=== PATIENT | male | born 1965 | race Caucasian/White ===

== ENCOUNTER 2017-07-10 07:41 | Outpatient (CLI) | payer OTHER | END 2017-07-10 07:45 | disposition home or self-care (01) | LOC: NUCLEAR 07:41 | DX: I20.0 Unstable angina (principal); E78.2 Mixed hyperlipidemia; I11.9 Hypertensive heart disease without heart failure | CPT/HCPCS: 78452; 93017; A9500 ==

== ENCOUNTER 2018-03-04 00:16 | Emergency (ER) | payer OTHER ==
[~2018-03-04] VITALS: Ht 182.9 cm; Wt 154.2 kg
== END 2018-03-04 03:45 | disposition home or self-care (01) ==
LOC: ER 00:16
DX: S00.83XA Contusion of other part of head, initial encounter (principal); W18.09XA Striking against other object with subsequent fall, initial encounter; Y93.89 Activity, other specified; Y92.89 Other specified places as the place of occurrence of the external cause; Y99.8 Other external cause status

== ENCOUNTER 2019-10-03 08:03 | Outpatient (CLI) | payer OTHER | END 2019-10-03 09:16 | disposition home or self-care (01) | LOC: NUCLEAR 08:03 | DX: I10 Essential (primary) hypertension (principal); I51.3 Intracardiac thrombosis, not elsewhere classified; E66.8 Other obesity; E11.9 Type 2 diabetes mellitus without complications; I73.9 Peripheral vascular disease, unspecified ==

== ENCOUNTER 2023-04-25 22:27 | Inpatient (IN) | payer OTHER ==
[~2023-04-25] VITALS: Ht 182.9 cm; Wt 1451.5 kg
[2023-04-25] MEDS ORDERED: BENICAR5 MG PO (22:46)
[2023-04-25] MEDS ORDERED: ECOTRIN325 M1 PO (22:46)
[2023-04-25] MEDS ORDERED: NORVASC5 MG PO (22:46)
[2023-04-25] MEDS ORDERED: GLUMETZA500 MG PO (22:46)
[2023-04-25] MEDS ORDERED: ATORVASTATIN CA40 MG PO (22:47)
[2023-04-25] MEDS ORDERED: LANTUS SOL100 UNIT/1 SQ (22:47)
[2023-04-25 23:56] LABS: HEMOGLOBIN 14.1 g/dL (13-16.00); MEAN CELL VOLUME 89.9 fL (80.0-100.00); MEAN CORPUSCULAR HEMOGLOBIN 30.3 pg (27.00-32.0); MEAN CORPUSCULAR HGB CONC 33.7 g/dl (32.0-36.0); PLATELET COUNT 258 K/uL (150-450); RED BLOOD COUNT 4.68 M/uL (4.00-6.00); RED CELL DISTRIBUTION WIDTH 14.3 % (11.5-14.5)
[2023-04-26 00:15] LABS: INR 1.01; PROTHROMBIN TIME 10.6 SECONDS (9.0-11.5)
[2023-04-26 00:38] LABS: ABG PH 7.437 (7.35-7.45); ABG PO2 80.9 mmHg (80-100); BASE EXCESS 0 mmol/l; BICARBONATE 23.7 mmol/l (23-25); SaO2 96.3 %; Tco2 24.8 mmol/l
[2023-04-26 00:39] LABS: allen test SATISFACTORY; o2 21 %; puncture site RADIAL RIGHT
[2023-04-26 00:39] LABS: ALBUMIN 3.3 gm/dL (3.4-5.0); BILIRUBIN TOTAL 0.35 mg/dL (0.3-1.2); CREATININE SERUM 1.64 mg/dL (0.70-1.30); GFR 43.36; GLOBULINA 3.4 G/DL (2.4-3.5); POTASSIUM 3.53 mEq/L (3.5-5.1); TOTAL PROTEIN 6.7 gm/dL (6.4-8.2)
[2023-04-26 00:48] LABS: PH,URINE 5.5 (5.0-8.0); URINE APPEARANCE Clear; URINE BILIRRUBIN Negative (NEGATIVE); URINE BLOOD Negative; URINE COLOR Yellow; URINE LEUKOCYTE Negative; URINE NITRATE Negative; URINE PROTEIN Negative (NEGATIVE); URINE UROBILINOGEN 0.2 E.U./dl
[2023-04-26 00:52] LABS: URINE BACTERIA 6.2 uL (0.0-1933); URINE EPITHELIAL CELLS 1.5 uL (0.0-38.8)
[2023-04-26 00:54] LABS: URINE GLUCOSE >=1000 MG/DL (NEGATIVE); URINE RBC 1.2 uL (0.0-20.8)
== END 2023-04-28 11:09 | disposition home or self-care (01) | DRG 309 ==
LOC: ER 22:27 → ICU-2 04-26 20:50 → ICU 04-26 20:50 → MEDI 04-27 19:32
PROVIDERS: General Practice; ADMIT Internal Medicine; ATTEND Internal Medicine
PROC: 4A12X4Z Monitoring of Cardiac Electrical Activity, External Approach (ICD-10-PCS; principal; 2023-04-27)
PROC: B24BZZZ Ultrasonography of Heart with Aorta (ICD-10-PCS; 2023-04-27)
DX: I48.20 Chronic atrial fibrillation, unspecified (principal); N17.9 Acute kidney failure, unspecified; G47.33 Obstructive sleep apnea (adult) (pediatric); Z79.4 Long term (current) use of insulin; Z20.822 Contact with and (suspected) exposure to COVID-19; E66.01 Morbid (severe) obesity due to excess calories; I13.10 Hypertensive heart and chronic kidney disease without heart failure, with stage 1 through stage 4 chronic kidney disease, or unspecified chronic kidney disease; E11.22 Type 2 diabetes mellitus with diabetic chronic kidney disease; N18.9 Chronic kidney disease, unspecified

== ENCOUNTER 2023-05-14 07:58 | Emergency (ER) | payer OTHER ==
[~2023-05-14] VITALS: Ht 182.9 cm; Wt 144.2 kg
[~2023-05-14 07:58] MED LIST: ATORVASTATIN CA40 MG PO; BENICAR5 MG PO; ECOTRIN325 M1 PO; GLUMETZA500 MG PO; LANTUS SOL100 UNIT/1 SQ; NORVASC5 MG PO
[2023-05-14] MEDS ORDERED: TOPROL XL100 M1 PO ×2 (08:16→08:50)
[2023-05-14] MEDS ORDERED: METFORMIN HCL850 M1 PO (08:16)
[2023-05-14] MEDS ORDERED: ELIQUIS5 MG PO (08:17)
== END 2023-05-14 09:19 | disposition home or self-care (01) ==
LOC: ER 07:59
DX: F41.9 Anxiety disorder, unspecified (principal); I10 Essential (primary) hypertension; E11.9 Type 2 diabetes mellitus without complications; Z79.4 Long term (current) use of insulin; Z79.84 Long term (current) use of oral hypoglycemic drugs; G47.30 Sleep apnea, unspecified; I49.9 Cardiac arrhythmia, unspecified

== ENCOUNTER 2024-02-03 11:18 | Emergency (ER) | payer OTHER ==
[~2024-02-03] VITALS: Ht 182.9 cm; Wt 151.0 kg
[~2024-02-03 11:18] MED LIST changes: +ELIQUIS5 MG PO; +METFORMIN HCL850 M1 PO; +TOPROL XL100 M1 PO
[2024-02-03 12:42] LABS: HEMATOCRIT 46.8 % (39.0-48.0); HEMOGLOBIN 15.3 g/dL (13-16.00); MEAN CELL VOLUME 90.4 fL (80.0-100.00); MEAN CORPUSCULAR HEMOGLOBIN 29.5 pg (27.00-32.0); MEAN CORPUSCULAR HGB CONC 32.7 g/dl (32.0-36.0); PLATELET COUNT 248 K/uL (150-450); RED BLOOD COUNT 5.17 M/uL (4.00-6.00); RED CELL DISTRIBUTION WIDTH 14.3 % (11.5-14.5)
[2024-02-03 13:04] LABS: INR 1.11
[2024-02-03 13:11] LABS: FIBRINOGEN 455 mg/dL (187.0-446.0); PARTIAL THROMBOPLASTIN TIME 33.4 SECONDS (22.0-34.0)
[2024-02-03 13:24] LABS: D DIMER < 0.19 MG/L
[2024-02-03 13:42] LABS: ALBUMIN 3.5 gm/dL (3.4-5.0); BILIRUBIN TOTAL 0.79 mg/dL (0.3-1.2); CALCIUM 9.1 mg/dL (8.5-10.1); CREATININE SERUM 1.13 mg/dL (0.70-1.30); GFR 66.42; GLOBULINA 3.4 G/DL (2.4-3.5); POTASSIUM 4.16 mEq/L (3.5-5.1); TOTAL PROTEIN 6.9 gm/dL (6.4-8.2)
[2024-02-03] MEDS ORDERED: INSULIN REGULAR, HUMAN 1,000 UNIT/10 ML UNITS IV ONE (14:00)
[2024-02-03] MEDS ORDERED: 0.9 % SODIUM CHLORIDE 1,000 ML IV ONE (14:00)
== END 2024-02-03 15:36 | disposition home or self-care (01) ==
LOC: ER 11:20
PROVIDERS: General Practice
DX: R00.2 Palpitations (principal); F41.9 Anxiety disorder, unspecified; I10 Essential (primary) hypertension; E11.9 Type 2 diabetes mellitus without complications; Z79.84 Long term (current) use of oral hypoglycemic drugs

== ENCOUNTER → 2025-05-26 | Emergency (ER) | payer OTHER ==
[~2025-05-26] VITALS: Ht 182.9 cm; Wt 140.6 kg
[~2025-05-26] MED LIST changes: +ACETAMINOPHEN 500 MG GEL..CAP PO ONE; +AZOR 10-20 MG1 EACH; +BENZONATATE 100 MG CAPSULE PO ONE; +GUAIFENESIN 200 MG/10 ML BLIST.PACK PO ONE; +IRBESARTAN150 MG PO; +SYNJARDY 12.5-1 EAC1 PO; +ZEPBOUND7.5 MG/0.5 SQ
[2025-05-26 10:41] VITALS: BP 126/77; O2SAT 97
== END | disposition left against medical advice (07) ==
LOC: ER 09:40
DX: J98.8 Other specified respiratory disorders (principal); E11.9 Type 2 diabetes mellitus without complications; Z79.4 Long term (current) use of insulin; Z79.84 Long term (current) use of oral hypoglycemic drugs; I10 Essential (primary) hypertension